=== PATIENT | female | born 1985 ===

== ENCOUNTER 2017-01-22 19:15 | Emergency (ER) | payer MEDICAID ==
[2017-01-22 19:30] VITALS: BP 113/69; PULSE 92; RESP 18; TEMP 98.3; O2SAT 99
--- NOTE | 2017-01-22 19:33 | ED PDOC ---
Lower Extremity Pain/Injury Time Seen by Provider: 01/22/17 19:30 Chief Complaint (Nursing): Lower Extremity Problem/Injury Chief Complaint (Provider): knee pain History Per: Patient Additional Complaint(s): 32 year old female presents with pain to left knee s/p trip and fall earlier today. Patient states 2 weeks ago she injured same knee, was seen by PMD and had x-rays of left knee that were negative as per patient. Today she slipped and fell again wearing rain boots and states now pain to left knee is much worse. She states she heard crack in left knee at time of fall and she cannot put any weight on it. Tylenol taken earlier did not help the pain. Past Medical History Reviewed: Historical Data, Nursing Documentation, Vital Signs Vital Signs: Last Vital Signs Temp 98.3 F 01/22/17 19:28 Pulse 92 H 01/22/17 19:28 Resp 18 01/22/17 19:28 BP 113/69 01/22/17 19:28 Pulse Ox 99 01/22/17 19:28 - Medical History PMH: No Chronic Diseases - Family History Family History: States: No Known Family Hx - Living Arrangements Living Arrangements: With Family - Social History Current smoker - smoking cessation education provided: No Alcohol: None Drugs: Denies - Home Medications Home Medications: Ambulatory Orders Medication Instructions Recorded Ivermectin 12 mg PO ONCE 1 Days 03/05/16 Permethrin 5% [Permethrin 5% Cream] 1 applic TOP DAILY #1 bottle 03/05/16 hydrOXYzine HCl [Atarax] 25 mg PO Q6H PRN #15 tab 03/05/16 Dicyclomine [Bentyl] 20 mg PO Q12 PRN #20 tab 10/23/16 Ondansetron ODT [Zofran ODT] 4 mg PO Q6 PRN #16 odt 10/23/16 Naproxen [Naprosyn] 500 mg PO BID #20 tab 01/22/17 - Allergies Allergies/Adverse Reactions: Allergies Allergy/AdvReac Type Severity Reaction Status Date / Time No Known Allergies Allergy Verified 03/05/16 21:18 Wells Criteria for PE - Wells Criteria for Pulmonary Embolism Clinical Signs and Symptoms of DVT: No P.E is #1 Diagnosis, or Equally Likely: No Heart Rate >100: No Immobilization at least 3 days;Surgery previous 4 weeks: No Previous, objectively diagnosed PE or DVT: No Hemoptysis: No Malignancy w/treatment within 6 months, or palliative: No Total Score: 0 Review of Systems ROS Statement: Except As Marked, All Systems Reviewed And Found Negative Musculoskeletal: Positive for: Other (right knee injury) Physical Exam - Reviewed Nursing Documentation Reviewed: Yes Vital Signs Reviewed: Yes - Physical Exam Appears: Positive for: Well, Non-toxic, No Acute Distress Skin: Negative for: Rash Eye Exam: Positive for: Normal appearance Extremity: Positive for: Other (full rom left knee with pain, diffuse swelling noted, no calf swelling or tenderness, normal distal sensation left lower extremity) Neurologic/Psych: Positive for: Alert, Oriented - Laboratory Results Urine POC: Negative - ECG O2 Sat by Pulse Oximetry: 99 Pulse Ox Interpretation: Normal - Other Rad Left knee x-ray X-Ray: Interpreted by Me, Viewed By Me X-Ray Interpretation: no fx, no dis Medical Decision Making Medical Decision Makin32 year old with left knee pain Plan: test Motrin for pain X-ray left knee Patient aware of x-ray results. Crutches were given, knee immobilizer applied. Patient given prescription for Naprosyn and referral to orthopedist for follow- up Procedures - Splinting Location: left knee Pre-Made Type: knee immobilizer Pre-Proc Neuro Vasc Exam: normal Post-Proc Neuro Vasc Exam: normal Disposition - Clinical Impression Clinical Impression: Knee sprain - Patient ED Disposition Is Patient to be Admitted: No Counseled Patient/Family Regarding: Studies Performed, Diagnosis, Need For Followup, Rx Given - Disposition Referrals: John Pompa MD [Staff Provider] - Disposition: Routine/Home Disposition Time: 20:16 Condition: STABLE Additional Instructions: Ice, rest and elevate affected area. Take rx meds as directed as needed for pain. Follow up with orthopedist in 2-3 days. Prescriptions: Naproxen [Naprosyn] 500 mg PO BID #20 tab Instructions: Knee Sprain (ED), Knee Immobilizer (ED), Crutch Instructions (ED)
--- NOTE | 2017-01-23 11:10 | RAD ---
PROCEDURE: Left Knee Radiographs. HISTORY: COMPARISON: None available FINDINGS: Rotated lateral view. BONES: No acute displaced fracture. JOINTS: No dislocation. JOINT EFFUSION: No significant joint effusion. OTHER FINDINGS: None. IMPRESSION: No acute displaced fracture, dislocation, or significant joint effusion identified. If symptoms persist, or if there is continued clinical concern, x-ray follow-up in 7-10 days should be considered.
== END 2017-01-22 20:32 | disposition home or self-care (01) ==
LOC: H.ER 19:15
DX: S83.92XA Sprain of unspecified site of left knee, initial encounter (principal); W01.0XXA Fall on same level from slipping, tripping and stumbling without subsequent striking against object, initial encounter; Y93.9 Activity, unspecified